=== PATIENT | female | born 1985 | race Caucasian/White ===

== ENCOUNTER 2020-11-28 12:56 | Emergency (ER) | payer OTHER ==
[~2020-11-28] VITALS: Ht 175.3 cm; Wt 158.8 kg
[~2020-11-28 12:56] MED LIST: ACETAMINOPHEN-1 EAC1 PO; ATIVAN1 MG PO; AZITHROMYCIN 2250 MG PO; BIRTH CONTROL PO; CARAFATE 1 GM TA1 G1 PO; CYMBALTA60 MG PO; DICLEGIS; DICLEGIS DR 101 EACH; EFFEXOR XR150 MG OR; HYDROCHLOROTH12.5 MG OR; HYDROCHLOROTHIA25 M1 PO; HYDROCODONE-AP1 EAC6 PO; IBUPROFEN 800800 M1 PO; LABETALOL HCL100 MG; LEVAQUIN 500 M500 M2; MELATONIN5 M1 OR; METFORMIN HCL500 MG PO; NORCO 5-325 TA1 EACH PO; ONDANSETRON HCL4 M2 PO; PREDNISONE 20 M20 MG PO; PRINIVIL20 MG OR; PRINZIDE 20-121 EACH; REGLAN 10 MG TA10 MG PO; VICODIN 5-5001 EACH; VITAFOL FE+ DO1 EACH; VITAMIN D 5050000 I1; XANAX 0.5 MG0.5 MG PO; ZOFRAN ODT4 MG PO; ZOFRAN4 MG PO; ZOLOFT 50 MG TA50 M1; ZPAK PO
[2020-11-28] MEDS ORDERED: EFFEXOR XR150 MG PO (13:22)
[2020-11-28] MEDS ORDERED: BUSPIRONE HCL10 MG PO (13:22)
[2020-11-28] MEDS ORDERED: NIFEDIPINE10 MG PO (13:23)
[2020-11-28] MEDS ORDERED: HYDROCHLOROTHIA25 M2 PO (13:23)
[2020-11-28] MEDS ORDERED: LISINOPRIL10 MG PO (13:23)
[2020-11-28] MEDS ORDERED: FLEXERIL PO (14:41)
[2020-11-28] MEDS ORDERED: DICLOFENAC SODI75 MG PO (14:41)
[2020-11-28 14:52] VITALS: BP 132/65
== END 2020-11-28 14:53 | disposition home or self-care (01) ==
LOC: M.ERS 12:56
DX: S16.1XXA Strain of muscle, fascia and tendon at neck level, initial encounter (principal); S20.211A Contusion of right front wall of thorax, initial encounter; I10 Essential (primary) hypertension; E66.01 Morbid (severe) obesity due to excess calories; Z68.43 Body mass index [BMI] 50.0-59.9, adult; Z88.0 Allergy status to penicillin; Z88.8 Allergy status to other drugs, medicaments and biological substances; Z90.49 Acquired absence of other specified parts of digestive tract; V89.2XXA Person injured in unspecified motor-vehicle accident, traffic, initial encounter; Y93.89 Activity, other specified; Y92.89 Other specified places as the place of occurrence of the external cause; Y99.8 Other external cause status